=== PATIENT | female | born 1965 | race African-American/Black ===

== ENCOUNTER → 2016-04-01 | Outpatient (CLI) | payer OTHER ==
[2016-02-01 11:00] VITALS: BP 150/80
[~2016-04-01] MED LIST: ACET325T9 PO; CIPR500T94 PO; GABA-586 PO; GABA800T2 PO; HYDR-2762 PO; PANT40TA5 PO; PRED20TA PO; SUCR1TAB PO
[2016-04-01 14:50] LABS: BASO % 1 % (0-3); EOS % 3 % (0-3); HEMATOCRIT 39.8 % (36.0-47.0); HEMOGLOBIN 12.9 g/dL (12.0-15.5); LYMPH # 2.3 x10^3/uL (1.0-4.8); LYMPH % 25 % (24-48); MEAN CORPUSCULAR HEMOGLOBIN 29 pg (25-35); MEAN CORPUSCULAR HGB CONC 32 g/dL (31-37); MEAN CORPUSCULAR VOLUME 88 fL (79-100); MONO % 5 % (0-9); NEUT % 66 % (31-73); PLATELET COUNT 323 x10^3/uL (140-400); RED BLOOD COUNT 4.52 x10^6/uL (3.50-5.40); RED CELL DISTRIBUTION WIDTH 14.8 % (11.5-14.5)
== END | disposition home or self-care (01) ==
LOC: LAB 14:33
PROVIDERS: ATTEND Psychiatry & Neurology Neurology
DX: M35.8 Other specified systemic involvement of connective tissue (principal)
CPT/HCPCS: 36415; 82550; 85027; 85651; 86141